=== PATIENT | male | born 1960 | race Caucasian/White ===

== ENCOUNTER 2020-11-24 20:22 | Emergency (ER) | payer OTHER ==
[~2020-11-24] VITALS: Ht 175.3 cm; Wt 163.3 kg
[~2020-11-24 20:22] MED LIST: AMIODARONE HCL200 MG PO; CARDIZEM CD240 MG PO; CLOPIDOGREL75 MG PO; FUROSEMIDE 40MG40 MG PO; HYDROCODON-ACE1 EAC4 PO; KEFLEX500 MG PO; LISINOPRIL40 MG PO; LORAZEPAM1 MG PO; MELOXICAM15 MG PO; METOPROLOL SUCC50 MG PO; PREDNISONE 20MG20 MG PO; TOPROL XL 25MG25 MG PO; XARELTO10 MG PO
[2020-11-24 20:48] LABS: BASOPHIL 0.6 % (0-2); EOSINOPHIL 1.7 % (0-5); HCT 50.9 % (42.0-52.0); HGB 16.3 g/dl (13.2-18.0); MCH 29.9 pg (25.0-31.0); MCV 93.2 fL (78.0-100.0); MONOCYTE 9.1 % (0-12); MPV 10.7 fL (6.0-9.5); NEUTROPHIL 60.1 % (41-80); NRBC 0; PLT 259 K/uL (150-400); RBC 5.46 M/uL (4.70-6.00); RDW 14.8 % (11.5-14.0); WBC 11.5 K/uL (4.0-10.5)
[2020-11-24 21:04] LABS: INR 0.94 (0.9-1.2)
[2020-11-24 21:05] LABS: PTT 30.4 SECONDS (24.4-34.7)
[2020-11-24 21:06] LABS: D-DIMER 0.63 ug/mLFEU (0.00-0.41)
[2020-11-24 21:14] LABS: ALBUMIN 3.7 g/dL (3.4-5.0); BILIRUBIN - TOTAL 0.3 mg/dL (0.2-1.0); BUN/CREAT RATIO (CALC) 18.3 RATIO; CREATININE 1.31 mg/dL (0.67-1.17); GLOBULIN (CALCULATION) 4.2 g/dL; TOTAL PROTEIN 7.9 g/dL (6.4-8.2)
[2020-11-24 21:18] LABS: PRO-BNP 786 pg/mL (<125)
[2020-11-25 21:33] LABS: BASOPHIL 0.6 % (0-2); EOSINOPHIL 1.4 % (0-5); HCT 44.5 % (42.0-52.0); HGB 14.2 g/dl (13.2-18.0); LYMPHOCYTE 17.9 % (15-48); MCH 30.8 pg (25.0-31.0); MCHC 31.9 g/dL (32.0-36.0); MCV 96.5 fL (78.0-100.0); MONOCYTE 8.8 % (0-12); MPV 10.7 fL (6.0-9.5); NRBC 0; PLT 168 K/uL (150-400); RBC 4.61 M/uL (4.70-6.00); RDW 14.9 % (11.5-14.0); WBC 8.9 K/uL (4.0-10.5)
== END 2020-11-26 09:07 | disposition other institution (70) ==
LOC: FER 20:22
PROVIDERS: Emergency Medicine Emergency Medical Services
DX: I21.4 Non-ST elevation (NSTEMI) myocardial infarction (principal); I48.91 Unspecified atrial fibrillation; I11.9 Hypertensive heart disease without heart failure; I25.10 Atherosclerotic heart disease of native coronary artery without angina pectoris; J44.9 Chronic obstructive pulmonary disease, unspecified; F17.210 Nicotine dependence, cigarettes, uncomplicated; Z20.822 Contact with and (suspected) exposure to COVID-19; Z79.01 Long term (current) use of anticoagulants; Z88.6 Allergy status to analgesic agent; Z79.899 Other long term (current) drug therapy
CPT/HCPCS: 36415; 36600; 71045; 71275; 80053; 82803; 83880; 84145; 84484; 85025; 85379; 85610; 85730; 93005; J1644; J1940; J2270; J2405; J3490; Q9967; U0002

== ENCOUNTER 2021-09-08 00:05 | Inpatient (IN) | payer OTHER, MEDICARE ==
[~2021-09-08] VITALS: Ht 193 cm; Wt 166.0 kg
[2021-09-08 00:44] LABS: BASOPHIL 0.8 % (0-2); HCT 48.2 % (42.0-52.0); HGB 14.6 g/dl (13.2-18.0); LYMPHOCYTE 25.9 % (15-48); MCH 28.3 pg (25.0-31.0); MCHC 30.3 g/dL (32.0-36.0); MCV 93.4 fL (78.0-100.0); MONOCYTE 7.9 % (0-12); MPV 11.2 fL (6.0-9.5); NEUTROPHIL 63.7 % (41-80); NRBC 0.1; PLT 301 K/uL (150-400); RBC 5.16 M/uL (4.70-6.00); WBC 16.4 K/uL (4.0-10.5)
[2021-09-08 01:03] LABS: BILIRUBIN NEGATIVE (NEGATIVE); BLOOD TRACE-INTACT Ery/uL (NEGATIVE); CLARITY CLEAR (CLEAR); COLOR YELLOW (YELLOW); GLUCOSE (U) NORMAL (NORMAL); LEUKOCYTES NEGATIVE Leu/uL (NEGATIVE); NITRITE NEGATIVE (NEGATIVE); PROTEIN 2+ mg/dL (NEGATIVE); SPECIFIC GRAVITY 1.025 (1.001-1.030)
[2021-09-08 01:07] LABS: BACTERIA TRACE; MUCOUS TRACE; URINARY RBC RARE
[2021-09-08 01:28] LABS: ALBUMIN 3.5 g/dL (3.4-5.0); BILIRUBIN - TOTAL 0.5 mg/dL (0.2-1.0); BUN/CREAT RATIO (CALC) 15.5 RATIO; C-REACTIVE PROTEIN 3.1 mg/dL (<=0.90); CREATININE 1.55 mg/dL (0.67-1.17); FT4 (FREE T4) 1.3 ng/dL (0.76-1.46); GLOBULIN (CALCULATION) 4.1 g/dL; MAGNESIUM 2.3 mg/dL (1.8-2.4); POTASSIUM 4.2 mmol/L (3.5-5.1); TOTAL PROTEIN 7.6 g/dL (6.4-8.2)
[2021-09-08 01:30] LABS: LACTIC ACID 3.2 mmol/L (0.4-1.9)
[2021-09-08 01:32] LABS: INR 1.95 (0.9-1.2); PROTHROMBIN TIME 21.6 SECONDS (11.9-13.9); PTT 36.7 SECONDS (24.9-34.6)
[2021-09-08 01:33] LABS: D-DIMER 0.48 ug/mLFEU (0.00-0.41)
[2021-09-08 01:36] LABS: IRON % SATURATION 9.2 %SAT (20-50)
[2021-09-08 01:37] LABS: CORONAVIRUS 2019 SARS-COV-2 NEGATIVE (NEGATIVE); INFLUENZA A NAA NEGATIVE (NEGATIVE)
[2021-09-08] MEDS ORDERED: LOPRESSOR25 MG PO (06:20)
[2021-09-08] MEDS ORDERED: LASIX40 MG PO (06:21)
[2021-09-08] MEDS ORDERED: ENTRESTO 24 MG1 EACH PO (06:22)
[2021-09-08] MEDS ORDERED: BRILINTA90 MG PO (06:23)
[2021-09-08] MEDS ORDERED: ASPIRIN81 MG PO (06:23)
[2021-09-08 06:53] LABS: BASOPHIL 0.1 % (0-2); EOSINOPHIL 0 % (0-5); HCT 44.5 % (42.0-52.0); HGB 13.4 g/dl (13.2-18.0); LYMPHOCYTE 2.9 % (15-48); MCH 28.2 pg (25.0-31.0); MCHC 30.1 g/dL (32.0-36.0); MCV 93.5 fL (78.0-100.0); MONOCYTE 2.4 % (0-12); NRBC 0.2; PLT 216 K/uL (150-400); RBC 4.76 M/uL (4.70-6.00); RDW 15.1 % (11.5-14.0); WBC 13.6 K/uL (4.0-10.5)
[2021-09-08 07:13] LABS: NEUTROPHIL 93.6 % (41-80)
[2021-09-08 07:18] LABS: BUN/CREAT RATIO (CALC) 17.4 RATIO; CREATININE 1.67 mg/dL (0.67-1.17); MAGNESIUM 2.4 mg/dL (1.8-2.4); PHOSPHORUS 4.8 mg/dL (2.6-4.7); POTASSIUM 5.1 mmol/L (3.5-5.1)
[2021-09-08] MEDS ORDERED: AMIODARONE HCL200 MG PO (10:38)
[2021-09-08] MEDS ORDERED: SYMBICORT 80-10.2 GM INH (12:26)
[2021-09-08] MEDS ORDERED: VENTOLIN (2.5 MG/3 M INH (12:26)
[2021-09-08 15:38] LABS: BUN/CREAT RATIO (CALC) 22.4 RATIO; CREATININE 1.43 mg/dL (0.67-1.17)
[2021-09-08 15:43] LABS: POTASSIUM 5.7 mmol/L (3.5-5.1)
--- NOTE | 2021-09-08 18:23 | NUR ---
1100 OG TUBE WAS PLACED AND KUB WAS DONE TO CONFIRM PLACEMENT MARTA SAID OK TO USE
[2021-09-09 06:26] LABS: BASOPHIL 0.1 % (0-2); EOSINOPHIL 0 % (0-5); HCT 42.6 % (42.0-52.0); HGB 12.9 g/dl (13.2-18.0); LYMPHOCYTE 5.7 % (15-48); MCH 28.7 pg (25.0-31.0); MCHC 30.3 g/dL (32.0-36.0); MCV 94.9 fL (78.0-100.0); MONOCYTE 7.4 % (0-12); MPV 11.3 fL (6.0-9.5); NEUTROPHIL 85.9 % (41-80); NRBC 0; PLT 236 K/uL (150-400); RBC 4.49 M/uL (4.70-6.00); RDW 15.5 % (11.5-14.0)
[2021-09-09 06:28] LABS: WBC 17.7 K/uL (4.0-10.5)
[2021-09-09 07:04] LABS: ALBUMIN 2.9 g/dL (3.4-5.0); BILIRUBIN - DIRECT 0.1 mg/dL (0.00-0.20); BILIRUBIN - TOTAL 0.4 mg/dL (0.2-1.0); BUN/CREAT RATIO (CALC) 22.5 RATIO; CREATININE 1.51 mg/dL (0.67-1.17); GLOBULIN (CALCULATION) 3.9 g/dL; TOTAL PROTEIN 6.8 g/dL (6.4-8.2)
[2021-09-09 07:08] LABS: POTASSIUM 4.1 mmol/L (3.5-5.1)
[2021-09-09 08:44] LABS: LACTIC ACID 2.3 mmol/L (0.4-1.9)
[2021-09-09 11:49] LABS: CREATININE 1.48 mg/dL (0.67-1.17); POTASSIUM 4.3 mmol/L (3.5-5.1)
[2021-09-09 11:58] LABS: HGB 13.9 g/dL (13.2-18.0)
--- NOTE | 2021-09-09 18:43 | NUR ---
SHIFT ASSESSMENT CHARTING BY LARRY GIRON, NURSE MANUGRAPHER, REVIEWED AND CONFIRMED.
[2021-09-10 05:49] LABS: HCT 40.3 % (42.0-52.0); HGB 12.7 g/dl (13.2-18.0); MCH 28.9 pg (25.0-31.0); MCHC 31.5 g/dL (32.0-36.0); MCV 91.8 fL (78.0-100.0); MPV 10.8 fL (6.0-9.5); RBC 4.39 M/uL (4.70-6.00); RDW 15.5 % (11.5-14.0); WBC 12.9 K/uL (4.0-10.5)
[2021-09-10 06:07] LABS: HBSAG SCREEN Negative (Negative); HCV AB <0.1 (0.0-0.9); HEP A AB, IGM Negative (Negative); HEP B CORE AB, IGM Negative (Negative)
[2021-09-10 06:10] LABS: BUN/CREAT RATIO (CALC) 26.2 RATIO; CREATININE 1.45 mg/dL (0.67-1.17); POTASSIUM 3.9 mmol/L (3.5-5.1)
--- NOTE | 2021-09-10 12:49 | NUR ---
09/10/21 Mr. Rodriguez lives at home with his spouse. He does not use any DME. PCP = Dr. Parnell / Chandana Sánchez. The family report to meet their basic financial obligations. The are supported by his SSD and Ms. Rodriguez's income from employment.
[2021-09-11 06:18] LABS: HCT 39.8 % (42.0-52.0); HGB 12.4 g/dl (13.2-18.0); MCH 28.4 pg (25.0-31.0); MCHC 31.2 g/dL (32.0-36.0); MCV 91.3 fL (78.0-100.0); MPV 10.8 fL (6.0-9.5); RBC 4.36 M/uL (4.70-6.00); RDW 15.3 % (11.5-14.0); WBC 10.9 K/uL (4.0-10.5)
[2021-09-11 06:53] LABS: ALBUMIN 2.9 g/dL (3.4-5.0); BILIRUBIN - DIRECT 0.1 mg/dL (0.00-0.20); BILIRUBIN - TOTAL 0.5 mg/dL (0.2-1.0); BUN/CREAT RATIO (CALC) 23.4 RATIO; CREATININE 1.24 mg/dL (0.67-1.17); GLOBULIN (CALCULATION) 3.6 g/dL; POTASSIUM 3.9 mmol/L (3.5-5.1); TOTAL PROTEIN 6.5 g/dL (6.4-8.2)
[2021-09-12 07:02] LABS: BASOPHIL 0.3 % (0-2); EOSINOPHIL 0.8 % (0-5); HCT 40.6 % (42.0-52.0); HGB 12.6 g/dl (13.2-18.0); LYMPHOCYTE 16.3 % (15-48); MCH 28.4 pg (25.0-31.0); MCV 91.6 fL (78.0-100.0); MONOCYTE 7.5 % (0-12); MPV 11.6 fL (6.0-9.5); NEUTROPHIL 74.4 % (41-80); NRBC 0.2; PLT 216 K/uL (150-400); RBC 4.43 M/uL (4.70-6.00); WBC 12.5 K/uL (4.0-10.5)
[2021-09-12 07:39] LABS: BILIRUBIN - TOTAL 0.5 mg/dL (0.2-1.0); BUN/CREAT RATIO (CALC) 23.5 RATIO; CREATININE 1.15 mg/dL (0.67-1.17); GLOBULIN (CALCULATION) 3.7 g/dL; MAGNESIUM 2.5 mg/dL (1.8-2.4); POTASSIUM 4.1 mmol/L (3.5-5.1); TOTAL PROTEIN 6.7 g/dL (6.4-8.2)
[2021-09-12] MEDS ORDERED: BUMEX1 MG PO (10:31)
[2021-09-12] MEDS ORDERED: ASPIRIN EC81 MG PO (12:48)
[2021-09-12] MEDS ORDERED: TOPROL XL 50 MG50 MG PO (12:49)
[2021-09-12] MEDS ORDERED: LIPITOR40 MG PO (12:49)
--- NOTE | 2021-09-12 13:13 | NUR ---
09/12/21 Mr. Rodriguez no longer requires 02. IV vancomycin has been ordered. A referreal was made to [facility] per patient choice. Patient is in agreement of the medication cost of $$125.26.
[2021-09-12] MEDS ORDERED: KLOR-CON 1010 MEQ PO (14:12)
[2021-09-12] MEDS ORDERED: VIBRAMYCIN100 MG PO (14:12)
== END 2021-09-12 18:59 | disposition home or self-care (01) | DRG 871 ==
LOC: FER 00:05 → FMS 02:52 → FICU 02:52 → FMS 09-10 07:59
PROVIDERS: Emergency Medicine; Family Medicine; Nurse Practitioner; Nurse Practitioner Acute Care; ADMIT Internal Medicine
PROC: 3E03329 Introduction of Other Anti-infective into Peripheral Vein, Percutaneous Approach (ICD-10-PCS; principal; 2021-09-08)
PROC: B24BZZZ Ultrasonography of Heart with Aorta (ICD-10-PCS; 2021-09-08)
PROC: 5A1945Z Respiratory Ventilation, 24-96 Consecutive Hours (ICD-10-PCS; 2021-09-08)
PROC: 0BH17EZ Insertion of Endotracheal Airway into Trachea, Via Natural or Artificial Opening (ICD-10-PCS; 2021-09-08)
PROC: 02HV33Z Insertion of Infusion Device into Superior Vena Cava, Percutaneous Approach (ICD-10-PCS; 2021-09-11)
DX: A41.1 Sepsis due to other specified staphylococcus (principal); I50.23 Acute on chronic systolic (congestive) heart failure; J96.01 Acute respiratory failure with hypoxia; J96.02 Acute respiratory failure with hypercapnia; J44.1 Chronic obstructive pulmonary disease with (acute) exacerbation; I48.20 Chronic atrial fibrillation, unspecified; N17.9 Acute kidney failure, unspecified; E66.2 Morbid (severe) obesity with alveolar hypoventilation; Z68.41 Body mass index [BMI] 40.0-44.9, adult; I13.0 Hypertensive heart and chronic kidney disease with heart failure and stage 1 through stage 4 chronic kidney disease, or unspecified chronic kidney disease; E87.2 Acidosis; R65.20 Severe sepsis without septic shock; Z20.822 Contact with and (suspected) exposure to COVID-19; N18.30 Chronic kidney disease, stage 3 unspecified; I25.5 Ischemic cardiomyopathy; I08.1 Rheumatic disorders of both mitral and tricuspid valves; K76.0 Fatty (change of) liver, not elsewhere classified; K76.89 Other specified diseases of liver; E11.65 Type 2 diabetes mellitus with hyperglycemia; F17.210 Nicotine dependence, cigarettes, uncomplicated; I25.10 Atherosclerotic heart disease of native coronary artery without angina pectoris; E11.22 Type 2 diabetes mellitus with diabetic chronic kidney disease; D63.1 Anemia in chronic kidney disease; R31.0 Gross hematuria; I25.2 Old myocardial infarction; Z83.3 Family history of diabetes mellitus; Z82.49 Family history of ischemic heart disease and other diseases of the circulatory system; Z88.8 Allergy status to other drugs, medicaments and biological substances; Z79.899 Other long term (current) drug therapy; Z98.890 Other specified postprocedural states; Z79.01 Long term (current) use of anticoagulants; Z95.5 Presence of coronary angioplasty implant and graft
CPT/HCPCS: 36415; 36600; 71045; 74018; 76705; 80048; 80053; 80074; 80076; 80202; 81001; 82550; 82803; 82962; 83036; 83540; 83550; 83605; 83735; 83880; 84100; 84145; 84439; 84443; 84484; 85018; 85025; 85379; 85610; 85730; 86140; 87040; 87070; 87077; 87088; 87186; 87205; 93005; 94002; 94003; 94640; 94760; 94762; 96365; 96366; 96375; 96376; C9113; J1642; J2250; J2543; J2704; J2930; J3010; J3370; J3475; J7040; J7050; J7512; U0002

== ENCOUNTER 2021-10-27 00:13 | Emergency (ER) | payer OTHER, MEDICARE ==
[~2021-10-27 00:13] MED LIST changes: +ASPIRIN EC81 MG PO; +ASPIRIN81 MG PO; +BRILINTA90 MG PO; +BUMEX1 MG PO; +ENTRESTO 24 MG1 EACH PO; +KLOR-CON 1010 MEQ PO; +LASIX40 MG PO; +LIPITOR40 MG PO; +LOPRESSOR25 MG PO; +SYMBICORT 80-10.2 GM INH; +TOPROL XL 50 MG50 MG PO; +VENTOLIN (2.5 MG/3 M INH; +VIBRAMYCIN100 MG PO
[2021-10-27 00:49] LABS: BASOPHIL 0.8 % (0-2); EOSINOPHIL 2.2 % (0-5); HCT 50.3 % (42.0-52.0); HGB 15.2 g/dl (13.2-18.0); MCH 27.4 pg (25.0-31.0); MCHC 30.2 g/dL (32.0-36.0); MCV 90.6 fL (78.0-100.0); MONOCYTE 8.2 % (0-12); MPV 11.2 fL (6.0-9.5); NEUTROPHIL 48.2 % (41-80); NRBC 0.2; PLT 325 K/uL (150-400); RBC 5.55 M/uL (4.70-6.00); RDW 15.5 % (11.5-14.0); WBC 16.2 K/uL (4.0-10.5)
[2021-10-27 01:02] LABS: ALBUMIN 3.6 g/dL (3.4-5.0); BILIRUBIN - TOTAL 0.4 mg/dL (0.2-1.0); BUN/CREAT RATIO (CALC) 9.3 RATIO; CREATININE 1.61 mg/dL (0.67-1.17); GLOBULIN (CALCULATION) 3.7 g/dL; POTASSIUM 3.5 mmol/L (3.5-5.1); TOTAL PROTEIN 7.3 g/dL (6.4-8.2)
[2021-10-27 01:16] LABS: INR 0.97 (0.9-1.2); PROTHROMBIN TIME 12.6 SECONDS (11.9-13.9)
[2021-10-27 01:26] LABS: CORONAVIRUS 2019 SARS-COV-2 NEGATIVE (NEGATIVE); INFLUENZA A NAA NEGATIVE (NEGATIVE)
[2021-10-27 02:16] LABS: BILIRUBIN NEGATIVE (NEGATIVE); BLOOD 3+ Ery/uL (NEGATIVE); CLARITY CLEAR (CLEAR); COLOR YELLOW (YELLOW); GLUCOSE (U) 1+ mg/dL (NORMAL); LEUKOCYTES NEGATIVE Leu/uL (NEGATIVE); NITRITE NEGATIVE (NEGATIVE); PROTEIN 3+ mg/dL (NEGATIVE); SPECIFIC GRAVITY >=1.030 (1.001-1.030); UROBILINOGEN 0.2 mg/dL (0.2-1.0)
[2021-10-27 02:28] LABS: URINARY RBC 20-50
[2021-10-27 02:29] LABS: BACTERIA 1+
[2021-10-27 02:30] LABS: AMORPHOUS URATES CRYSTALS TRACE; GRANULAR CASTS TRACE
[2021-10-27 02:37] LABS: CREATININE 1.67 mg/dL (0.67-1.17); POTASSIUM 4.3 mmol/L (3.5-5.1)
== END 2021-10-27 05:30 | disposition other institution (70) ==
LOC: FER 00:13
PROVIDERS: Internal Medicine
DX: I49.9 Cardiac arrhythmia, unspecified (principal); I48.20 Chronic atrial fibrillation, unspecified; J96.02 Acute respiratory failure with hypercapnia; J96.01 Acute respiratory failure with hypoxia; R57.0 Cardiogenic shock; J81.1 Chronic pulmonary edema; I11.0 Hypertensive heart disease with heart failure; I50.9 Heart failure, unspecified; J44.9 Chronic obstructive pulmonary disease, unspecified; Z88.6 Allergy status to analgesic agent; Z79.01 Long term (current) use of anticoagulants; Z79.899 Other long term (current) drug therapy; Z20.822 Contact with and (suspected) exposure to COVID-19
CPT/HCPCS: 31500; 36415; 36600; 71045; 80048; 80053; 81001; 82803; 83605; 83880; 84145; 84484; 85025; 85610; 85730; 87040; 93005; 96365; 96368; 96375; 96376; J2543; J2704; J3010; J3475; J3480; U0002